=== PATIENT | male | born 1985 | race Caucasian/White ===

== ENCOUNTER 2016-11-30 16:08 | Emergency (ER) | payer OTHER ==
[2016-11-30 16:18] VITALS: BP 155/93; PULSE 88; RESP 18; TEMP 97; O2SAT 96
[2016-11-30] MEDS ORDERED: TDAP ADULT 0.5 ML INJ (BOOSTRIX) IM ONE (16:19)
[2016-11-30] MEDS ORDERED: HYDROCODONE/APAP 5/325 TAB PO ONE (16:24)
--- NOTE | 2016-11-30 17:45 | UCPHY ---
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 He was using a hammer drill that caught his glove in gain to his left 4th finger causing an injury to the proximal finger at 3:30 p.m. the day of evaluation. He reports that the pain is 5/10 at baseline becomes severe with movement. He reports a mild abrasion to the affected hand as well. He did not take any medication prior to arrival. ROS: No numbness. He has difficulty moving the affected finger due to pain. 5 point ROS is otherwise negative. Past Medical/Surgical History: Otherwise healthy Smoking Status: Current every day smoker Physical Exam: Physical Exam Vital signs are normal. General: No acute distress Eyes: Pupils equal and react to light. Extraocular motions are intact. Lungs: No respiratory distress. Cardiac: Brisk capillary refill is intact throughout. Pulses are 2+ and symmetric in the affected extremity. Skin: No rash or pallor. Superficial abrasion to the same hand 2nd finger with no active bleeding. Extremities: Atraumatic normal except for left hand Left hand: Patient has left 4th proximal phalanx swelling tenderness and mild malrotation clockwise when viewed on end Neuro: Alert and oriented x3 with no sensorimotor deficits. Initial differential diagnosis: Fracture, dislocation Constitutional: Initial Vital Signs Temperature (C) 36.1 C 11/30/16 16:15 Heart Rate 88 11/30/16 16:15 Respiratory Rate 18 11/30/16 16:15 Blood Pressure 155/93 H 11/30/16 16:15 O2 Sat (%) 96 11/30/16 16:15 Allergies/Adverse Reactions: Penicillins Allergy (Unknown, Verified 11/30/16 16:15) Home Medications: Medication Instructions Recorded Hydrocodone/APAP 5/325 [Keene 1 - 2 tab PO Q4PRN PRN #15 tab 11/30/16 5/325 (*)] Ibuprofen [Motrin (*)] 600 mg PO Q6 PRN #30 tab 11/30/16 MDM/Departure - MDM Diagnostics: Hand x-ray reveals a proximal phalanx fracture to the 4th finger proximal metaphysis with mild displacement. The radiologist read this x-ray reviewed. Medications Given: Discontinued Medications Hydrocodone Bitart/Acetaminophen (Keene 5/325) 1 tab PO EDNOW ONE Stop: 03/02/17 16:25 Last Admin: 11/30/16 16:30 Dose: 1 tab Diphtheria/Tetanus/Acell Pertussis (Boostrix) 0.5 ml IM .ONCE ONE Stop: 11/30/16 16:20 Last Admin: 11/30/16 16:30 Dose: 0.5 ml ED Course/Re-evaluation: I spoke with Dr. babin-hand surgeon on-call reviewed the film would like to the patient is office tomorrow. He is uncertain if this injury will respond to closed reduction if it will require ORIF. Patient is treated with ibuprofen and Vicodin with partial improvement. His abrasions clean by our tech He is placed in Ortho Glass ulnar gutter that includes the affected finger. He is neurovascularly intact post splint application. I counseled regarding the injury in the plan to follow-up tomorrow with Dr. babin in the office - Depart Disposition: Home, Routine, Self-Care Clinical Impression: Finger fracture, left Hand abrasion Qualifiers: Encounter type: initial encounter Laterality: left Qualified Code(s): S60.512A - Abrasion of left hand, initial encounter Condition: Good Instructions: Finger Fracture (ED), Abrasion (ED) Additional Instructions: Diagnoses:. Finger fracture 2. Hand abrasion Plan: Clean the abrasion daily with warm soapy water Keep the hand/finger in the splint. Keep the splint dry. Call Dr. ritchie's office at 8:00 a.m. to arrange a follow-up appointment for tomorrow for further evaluation and treatment Prescriptions: Hydrocodone/APAP 5/325 [Keene 5/325 (*)] 1 - 2 tab PO Q4PRN PRN #15 tab PRN Reason: Pain Ibuprofen [Motrin (*)] 600 mg PO Q6 PRN #30 tab PRN Reason: Pain Referrals: NONE *PRIMARY CARE P,. [Primary Care Provider] - As per Instructions Woody Ritchie MD [Medical Doctor] - As per Instructions - PQRS PQRS Measurement: NA
== END 2016-11-30 18:33 | disposition home or self-care (01) ==
LOC: CED 16:08
PROC: 2W3FX1Z Immobilization of Left Hand using Splint (ICD-10-PCS; principal; 2016-11-30)
DX: S62.605A Fracture of unspecified phalanx of left ring finger, initial encounter for closed fracture (principal); S60.512A Abrasion of left hand, initial encounter; F17.200 Nicotine dependence, unspecified, uncomplicated; Z88.0 Allergy status to penicillin; Z23 Encounter for immunization; W29.8XXA Contact with other powered hand tools and household machinery, initial encounter; Y99.0 Civilian activity done for income or pay
CPT/HCPCS: 29125-PO; 73130-PO; 99214-PO; G0463-PO